=== PATIENT | female | born 1985 | race Caucasian/White ===

== ENCOUNTER 2016-11-07 12:38 | Observation (INO) ==
[2016-11-07] MEDS ORDERED: MORPHINE 2 MG/ML SYRINGE IVP STA (12:48)
[2016-11-07] MEDS ORDERED: SODIUM CHLORIDE 1,000 ML IV STA (12:48)
[2016-11-07] MEDS ORDERED: ZOFRAN 4 MG/2 ML IVP STA (12:48)
[2016-11-07 13:05] LABS: BASOPHILS # (AUTO) 0.1 K/uL (0-0.2); BASOPHILS % (AUTO) 0.3 % (0.0-3.0); EOSINOPHILS % (AUTO) 0.1 % (0.0-7.0); HEMATOCRIT 46.9 % (37.0-47.0); HEMOGLOBIN 15.4 g/dl (12.0-16.0); IMMATURE GRANULOCYTE % (AUTO) 0.5 % (0.0-5.0); LYMPHOCYTES # (AUTO) 1.6 K/uL (0.60-3.4); LYMPHOCYTES % (AUTO) 5.5 (10.0-50.0); MEAN CORPUSCULAR HEMOGLOBIN 28.5 pg (27.0-31.0); MEAN CORPUSCULAR HGB CONC 32.8 (31.8-35.4); MEAN CORPUSCULAR VOLUME 86.9 fl (81.0-99.0); MONOCYTES % (AUTO) 6.7 (0-10); NEUTROPHILS # (AUTO) 25.5 K/ul (2.0-6.9); NEUTROPHILS % (AUTO) 86.9; PLATELET COUNT 327 10^3/uL (140-440)
[2016-11-07 13:12] LABS: WHITE BLOOD COUNT 29.38 K/ul (4.6-10.2)
[2016-11-07 13:13] LABS: BILIRUBIN,URINE 1+ (NEGATIVE); KETONES,URINE Trace (NEGATIVE); LEUKOCYTE ESTERASE ,URINE Negative (NEGATIVE); NITRITE,URINE Negative (NEGATIVE); PH,URINE 5.5 (5-9); PROTEIN,URINE 2+ (NEGATIVE); URINE, BLOOD 2+ (NEGATIVE)
[2016-11-07 13:13] LABS: URINE PREGNANCY INTERNAL QC INTERNAL QC VALID
[2016-11-07 13:14] LABS: ADD URINE MICROSCOPIC YES
[2016-11-07 13:23] LABS: FLU INTERNAL QC INTERNAL QC VALID; RAPID FLU A NEGATIVE (NEGATIVE); RAPID FLU B NEGATIVE (NEGATIVE)
[2016-11-07 13:27] LABS: ALANINE AMINOTRANSFERASE 42 U/L (12-78); ALBUMIN 4.4 g/dL (3.4-5.0); ALBUMIN/GLOBULIN RATIO 1.19; ALKALINE PHOSPHATASE 130 U/L (42-98); AMYLASE 26 U/L (25-115); ANION GAP 19.8; ASPARTATE AMINO TRANSFERASE 15 U/L (15-37); BILIRUBIN,TOTAL 0.67 mg/dL (0.00-1.20); BLOOD UREA NITROGEN 19 mg/dL (7-18); BUN/CREATININE RATIO 20.21; CARBON DIOXIDE 23 mmol/L (21-32); CHLORIDE 102 mmol/L (98-107); CREATININE 0.94 mg/dL (0.60-1.30); GLUCOSE 143 mg/dL (70-110); POTASSIUM 3.8 mmol/L (3.5-5.10); SODIUM 141 mmol/L (136-145); TOTAL PROTEIN 8.1 g/dL (6.4-8.2)
[2016-11-07 13:28] LABS: LIPASE < 4 U/L (8-78)
[2016-11-07 13:29] LABS: BACTERIA,URINE TRACE (NOT PRESENT)
--- NOTE | 2016-11-07 14:13 | CT ---
EXAM: CT of the abdomen pelvis without contrast History: Back pain and vomiting. Comparison: CT abdomen pelvis 08/24/2016 Technique: Multiplanar CT images through the abdomen pelvis were obtained without the administratio n of IV contrast Findings: Lung bases are free of consolidation. No acute osseous abnormalities. Status post cholecystectomy. No focal liver or splenic lesions. No renal stones and no hydronephro sis. No bowel obstruction. The appendix is not seen but there are no secondary signs of appendicit is. No free air. No ascites. Bladder is not well distended. No perirectal inflammation. Uterus is not seen. Pancreas and adrenal glands are unremarkable. Impression: No acute intra-abdominal or pelvic process.
[2016-11-07] MEDS ORDERED: DILAUDID 1 MG/ML SYRINGE IVP STA (14:17)
--- NOTE | 2016-11-07 14:23 | ED.PDOC ---
General ED Provider: Dr. DANIELITO KING-ER Chief Complaint: Nausea/Vomiting Stated Complaint: im been throwing up since lastd nite and diarrhea Time Seen by Physician: 12:45 Mode of Arrival: Walk-In Information Source: Patient Exam Limitations: No limitations Primary Care Provider: [facility] Nursing and Triage Documentation Reviewed and Agree: Yes GI Complaint Exam - Vomiting/Diarrhea Complaint/Exam Onset/Duration: 24hrs Symptoms Are: Still present Episodes of Vomiting over last 24 Hours: 12 Episodes of Diarrhea Over Last 24 Hours: 8 Review of Systems - Review Of Systems Constitutional: Reports: No symptoms Eyes: Reports: No symptoms Ears, Nose, Mouth, Throat: Reports: No symptoms Respiratory: Reports: No symptoms Cardiac: Reports: No symptoms GI: Reports: Diarrhea, Nausea, Vomiting : Reports: No symptoms Musculoskeletal: Reports: No symptoms Skin: Reports: No symptoms Neurological: Reports: No symptoms Endocrine: Reports: No symptoms Hematologic/Lymphatic: Reports: No symptoms All Other Systems: Reviewed and Negative Past Medical History - Past Medical History Previously Healthy: Yes Endocrine: Reports: None Cardiovascular: Reports: None Respiratory: Reports: None Hematological: Reports: None Gastrointestinal: Reports: None Genitourinary: Reports: None Neuro/Psych: Reports: Migraine, Anxiety Musculoskeletal: Reports: Back Pain Cancer: Reports: None Last Menstrual Period: NA - Surgical History General Surgical History: Reports: Hysterectomy, Tubal ligation, Cholecystectomy , Tonsillectomy - Family History Family History: Reports: Unknown - Social History Smoking Status: Current some day smoker, Light tobacco smoker Hx Substance Use: No Alcohol Screening: None Lives: With family Physical Exam - Physical Exam Appearance: Well-appearing Ill-appearing: Mild Pain Distress: Mild Eyes: ARAMIS, EOMI, Conjunctiva clear ENT: Ears normal, Nose normal, Oropharynx normal Neck: Supple Respiratory: Airway patent Cardiovascular: RRR, Pulses normal, No rub, No murmur GI/: Soft Musculoskeletal: Normal strength, ROM intact, No edema, No calf tenderness Skin: Warm, Dry, Normal color Neurological: Sensation intact, Motor intact, Reflexes intact, Cranial nerves intact, Alert, Oriented Psychiatric: Affect appropriate Interpretation - Radiology Interpretation Radiology Interpretation By: Radiologist Radiology Results: Negative Exam Interpreted: CT Scan Physician Notification - Case Discussed Physician Notified: dr davila Time of Notification: 14:26 Critical Care Note - Critical Care Note Total Time (mins): 0 Course - Course Hematology/Chemistry: 11/07/16 12:25 11/07/16 12:55 Orders, Labs, Meds: Lab Review 11/07/16 11/07/16 12:25 12:55 WBC 29.38 H RBC 5.40 Hgb 15.4 Hct 46.9 MCV 86.9 MCH 28.5 MCHC 32.8 RDW Coeff of Yang 12.2 Plt Count 327 Immature Gran % (Auto) 0.5 Neut % (Auto) 86.9 Lymph % (Auto) 5.5 L [place] % (Auto) 6.7 Eos % (Auto) 0.1 Baso % (Auto) 0.3 Immature Gran # (Auto) 0.2 Neut # 25.5 H Lymph # 1.6 [place] # 2.0 Eos # 0.0 Baso # 0.1 Sodium 141 Potassium 3.8 Chloride 102 Carbon Dioxide 23 Anion Gap 19.8 BUN 19 H Creatinine 0.94 Estimated GFR (MDRD) 70.00 BUN/Creatinine Ratio 20.21 Glucose 143 H Calcium 10.0 Total Bilirubin 0.67 AST 15 ALT 42 Alkaline Phosphatase 130 H Total Protein 8.1 Albumin 4.4 Globulin 3.7 Albumin/Globulin Ratio 1.19 Amylase 26 Lipase < 4 L Urine Color Dark Urine Clarity Slightly Urine pH 5.5 Ur Specific [place] 1.020 Urine Protein 2+ Urine Glucose (UA) Negative Urine Ketones Trace Urine Blood 2+ Urine Nitrite Negative Urine Bilirubin 1+ Urine Urobilinogen 0.2 Ur Leukocyte Esterase Negative Urine Microscopic RBC 2-5 Urine Microscopic WBC 2-5 Ur Squamous Epith Cells 2-5 Ur Renal Epithelial Cell 0-2 Amorphous Sediment 1+ Urine Bacteria Trace Urine Mucus 2+ Urine Test Negative Influenza A (Rapid) Negative Influenza B (Rapid) Negative Orders Category Date Time Status IV [ED IV/MEDIPORT/POWERPORT] .ONCE EMERGENCY 11/07/16 12:48 Active AMYLASE Stat LAB 11/07/16 12:55 Completed CBC W/ AUTO DIFF Stat LAB 11/07/16 12:25 Completed COMPREHENSIVE METABOLIC PANEL Stat LAB 11/07/16 12:55 Completed LIPASE Stat LAB 11/07/16 12:55 Completed MOLECULAR GROUP A STREP Stat LAB 11/07/16 12:25 Results RAPID FLU A/B Stat LAB 11/07/16 12:25 Completed STREP SCREEN Stat LAB 11/07/16 12:25 Results URINALYSIS C & S IF INDICATED Stat LAB 11/07/16 12:55 Completed URINE Stat LAB 11/07/16 12:25 Completed 0.9 % Sodium Chloride [Saline Flush] MEDS 11/07/16 12:48 Active 1 syr IVF PRN PRN Hydromorphone HCl [Dilaudid 1 mg/ml Syringe] MEDS 11/07/16 14:17 Discontinued 1 mg IVP ONCE STA Morphine Sulfate [Morphine 2 mg/ml Syringe] MEDS 11/07/16 12:48 Discontinued 2 mg IVP ONCE STA Ondansetron HCl/Pf [Zofran 4 mg/2 ml] MEDS 11/07/16 12:48 Discontinued 4 mg IVP ONCE STA Sodium Chloride 0.9% [Sodium Chloride] 1,000 ml MEDS 11/07/16 12:[address] ABDOMEN/PELVIS WO CONTRAST Stat RADS 11/07/16 12:48 Completed Medications Generic Name Dose Route Start Last Admin Trade Name Freq PRN Reason Stop Dose Admin Sodium Chloride 1 syr 11/07/16 12:48 11/07/16 13:36 Saline Flush IVF 1 syr PRN PRN Administration To flush IV Discontinued Medications Generic Name Dose Route Start Last Admin Trade Name Freq PRN Reason Stop Dose Admin Hydromorphone HCl 1 mg 11/07/16 14:17 Dilaudid 1 Mg/Ml Syringe IVP 11/07/16 14:18 ONCE STA Sodium Chloride 1,000 mls @ 1,000 mls/hr 11/07/16 12:48 11/07/16 13:39 Sodium Chloride IV 11/07/16 13:47 1,000 mls/hr BOLUS STA Administration Morphine Sulfate 2 mg 11/07/16 12:48 11/07/16 13:38 Morphine 2 Mg/Ml Syringe IVP 11/07/16 12:49 2 mg ONCE STA Administration Ondansetron HCl 4 mg 11/07/16 12:48 11/07/16 13:37 Zofran 4 Mg/2 Ml IVP 11/07/16 12:49 4 mg ONCE STA Administration Vital Signs: Temp Pulse Resp BP Pulse Ox 11/07/16 12:42 99.8 F H 113 H 20 109/59 L 97 Departure - Departure Time of Disposition: 14:26 Disposition: ADMITTED INPATIENT Discharge Problem: Dehydration, Enteritis Leukocytosis Qualifiers: Leukocytosis type: unspecified Qualifier Code: (D72.829) Elevated white blood cell count, unspecified Instructions: Enteritis (ED) Condition: Good Pt referred to PMD for follow-up: Yes Allergies/Adverse Reactions: Allergies cephalexin monohydrate [From Keflex] Allergy (Verified 11/07/16 12:40) hives and itching Pt to get medical alert necklace metoclopramide [From Reglan] Adverse Reaction (Intermediate, Verified 11/07/16 12:40) Rash Home Medications: Ambulatory Orders Oxycodone-Acetaminophen 5-325 [Percocet 5-325] 1 tab PO Q6H PRN 11/07/16 Disposition Discussed With: Patient
[2016-11-07] MEDS ORDERED: PHENERGAN 25 MG/ML VIAL 25 MG in SODIUM CHLORIDE 50 ML IV PRN (14:30)
[2016-11-07] MEDS: D5%-NS-KCL 20 MEQ/L IV SOL 1,000 ML IV SCH ×2 (14:46→23:07)
[2016-11-07 16:35] VITALS: BMI 27.9
[2016-11-07] MEDS: DILAUDID 1 MG/ML SYRINGE IVP PRN ×2 (17:58→21:37)
[2016-11-08] MEDS: DILAUDID 1 MG/ML SYRINGE IVP PRN ×4 (01:08→15:37)
[2016-11-08 06:35] LABS: BASOPHILS # (AUTO) 0.1 K/uL (0-0.2); BASOPHILS % (AUTO) 0.8 % (0.0-3.0); EOSINOPHILS # (AUTO) 0.4 K/ul (0.0-0.7); EOSINOPHILS % (AUTO) 4.3 % (0.0-7.0); HEMATOCRIT 36.7 % (37.0-47.0); HEMOGLOBIN 11.6 g/dl (12.0-16.0); IMMATURE GRANULOCYTE % (AUTO) 0.2 % (0.0-5.0); LYMPHOCYTES # (AUTO) 3.2 K/uL (0.60-3.4); MEAN CORPUSCULAR HEMOGLOBIN 28.5 pg (27.0-31.0); MEAN CORPUSCULAR HGB CONC 31.6 (31.8-35.4); MEAN CORPUSCULAR VOLUME 90.2 fl (81.0-99.0); MONOCYTES # (AUTO) 1.6 K/uL (0.4-2.0); MONOCYTES % (AUTO) 17.3 (0-10); NEUTROPHILS # (AUTO) 3.9 K/ul (2.0-6.9); NEUTROPHILS % (AUTO) 42.4; PLATELET COUNT 187 10^3/uL (140-440); RED BLOOD COUNT 4.07 10^6/ul (4.20-5.40); WHITE BLOOD COUNT 9.24 K/ul (4.6-10.2)
[2016-11-08 07:04] LABS: ALBUMIN 3.2 g/dL (3.4-5.0); ALBUMIN/GLOBULIN RATIO 1.23; ANION GAP 9.8; BILIRUBIN,TOTAL 0.36 mg/dL (0.00-1.20); BUN/CREATININE RATIO 12.3; CALCIUM 8.5 mg/dL (8.2-10.2); CREATININE 0.65 mg/dL (0.60-1.30); POTASSIUM 3.8 mmol/L (3.5-5.10); TOTAL PROTEIN 5.8 g/dL (6.4-8.2)
[2016-11-08] MEDS: D5%-NS-KCL 20 MEQ/L IV SOL 1,000 ML IV SCH ×2 (07:55→15:54)
[2016-11-08 14:37] VITALS: BP 106/65; TEMP 98
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
== END 2016-11-08 18:30 | disposition home or self-care (01) ==
LOC: ED 12:38 → INTOOBSV 14:34 → MEDSURG A 14:34
PROVIDERS: ADMIT General Practice; ATTEND General Practice
DX: K52.9 Noninfective gastroenteritis and colitis, unspecified (principal); E86.0 Dehydration; G89.29 Other chronic pain; M54.9 Dorsalgia, unspecified; G43.909 Migraine, unspecified, not intractable, without status migrainosus; F17.210 Nicotine dependence, cigarettes, uncomplicated; D72.829 Elevated white blood cell count, unspecified; V89.2XXS Person injured in unspecified motor-vehicle accident, traffic, sequela; Z79.891 Long term (current) use of opiate analgesic; Z79.899 Other long term (current) drug therapy
CPT/HCPCS: 36415; 80053; 81001; 81025; 82150; 83690; 85025; 86644; 86645; 86663; 86664; 86710; 87651; 87804; 87880; 96361; 96374; 96375; 96376; 99217; 99219; 99284

== ENCOUNTER 2017-01-05 18:33 | Emergency (ER) ==
[2017-01-05 18:44] VITALS: BP 136/83; TEMP 100.3; BMI 28.3
[2017-01-05] MEDS ORDERED: PHENERGAN 25 MG/ML VIAL IM STA (18:44)
[2017-01-05] MEDS ORDERED: DILAUDID 2 MG/ML SYRINGE IM STA (18:44)
[2017-01-05 19:17] LABS: FLU INTERNAL QC INTERNAL QC VALID; RAPID FLU A NEGATIVE (NEGATIVE); RAPID FLU B NEGATIVE (NEGATIVE)
[2017-01-05] MEDS ORDERED: IMITREX SUBCUT STA (19:25)
[2017-01-05] MEDS ORDERED: TORADOL IM STA (19:25)
--- NOTE | 2017-01-05 19:28 | ED.PDOC ---
General ED Provider: Dr. EARNESTINE HILL Chief Complaint: Headache Stated Complaint: Generalized headache. History of migraines and is out of her topamax Time Seen by Physician: 19:26 Mode of Arrival: Walk-In Information Source: Patient Primary Care Provider: VINICIUS DOWNS Nursing and Triage Documentation Reviewed and Agree: Yes Review of Systems - Review Of Systems Constitutional: Reports: No symptoms Eyes: Reports: Photophobia Ears, Nose, Mouth, Throat: Reports: No symptoms Respiratory: Reports: No symptoms Cardiac: Reports: No symptoms GI: Reports: No symptoms : Reports: No symptoms Musculoskeletal: Reports: No symptoms Skin: Reports: No symptoms Neurological: Reports: Anxiety, Headache Endocrine: Reports: No symptoms Hematologic/Lymphatic: Reports: No symptoms All Other Systems: Reviewed and Negative Past Medical History - Past Medical History Previously Healthy: Yes Endocrine: Reports: None Cardiovascular: Reports: None Respiratory: Reports: None Hematological: Reports: None Gastrointestinal: Reports: None Genitourinary: Reports: None Neuro/Psych: Reports: Migraine, Anxiety Musculoskeletal: Reports: Back Pain Cancer: Reports: None Last Menstrual Period: does not apply - Surgical History General Surgical History: Reports: Hysterectomy, Tubal ligation, Cholecystectomy , Tonsillectomy - Family History Family History: Reports: Unknown - Social History Smoking Status: Current every day smoker Hx Substance Use: No Alcohol Screening: None - Immunizations Tetanus Shot up to Date: Yes Physical Exam - Physical Exam Appearance: Ill-appearing Ill-appearing: Mild Pain Distress: Severe Eyes: ARAMIS, EOMI, Conjunctiva clear ENT: Ears normal, Nose normal Neck: Supple Respiratory: Airway patent, Breath sounds clear, Breath sounds equal, Respirations nonlabored Cardiovascular: Pulses normal, No rub, No murmur, Tachycardia GI/: Soft Musculoskeletal: Normal strength Skin: Warm, Dry Neurological: Sensation intact, Motor intact, Reflexes intact, Cranial nerves intact, Alert, Oriented Psychiatric: Anxious Re-Evaluation - Re-Evaluation Time of Re-Evaluation: 19:26 Status: Improved (with less nausea but stillhas bilateral pain . ) Critical Care Note - Critical Care Note Total Time (mins): 0 Course - Course Orders, Labs, Meds: Lab Review 01/05/17 18:56 Influenza A (Rapid) Negative Influenza B (Rapid) Negative Orders Category Date Time Status MOLECULAR GROUP A STREP Stat LAB 01/05/17 18:56 Results RAPID FLU A/B Stat LAB 01/05/17 18:56 Completed RAPID STREP SCREEN [STREP SCREEN] Stat LAB 01/05/17 18:56 Results Hydromorphone HCl/Pf [Dilaudid 2 mg/ml Syringe] MEDS 01/05/17 18:44 Discontinued 2 mg IM ONCE STA Ketorolac Tromethamine [Toradol] MEDS 01/05/17 19:25 Discontinued 60 mg IM ONCE STA Promethazine HCl [Phenergan 25 mg/ml Vial] MEDS 01/05/17 18:44 Discontinued 25 mg IM ONCE STA Sumatriptan Succinate [Imitrex] MEDS 01/05/17 19:25 Discontinued 6 mg SUBCUT ONCE STA Medications Discontinued Medications Generic Name Dose Route Start Last Admin Trade Name Freq PRN Reason Stop Dose Admin Hydromorphone HCl 2 mg 01/05/17 18:44 01/05/17 18:56 Dilaudid 2 Mg/Ml Syringe IM 01/05/17 18:45 2 mg ONCE STA Administration Ketorolac Tromethamine 60 mg 01/05/17 19:25 01/05/17 19:34 Toradol IM 01/05/17 19:26 60 mg ONCE STA Administration Promethazine HCl 25 mg 01/05/17 18:44 01/05/17 18:55 Phenergan 25 Mg/Ml Vial IM 01/05/17 18:45 25 mg ONCE STA Administration Sumatriptan Succinate 6 mg 01/05/17 19:25 01/05/17 19:33 Imitrex SUBCUT 01/05/17 19:26 6 mg ONCE STA Administration Vital Signs: Temp Pulse Resp BP Pulse Ox 01/05/17 18:34 100.3 F H 115 H 20 136/83 97 Departure - Departure Time of Disposition: 20:00 Disposition: HOME SELF-CARE Discharge Problem: Headache Instructions: Migraine Headache (ED) Condition: Fair Pt referred to PMD for follow-up: Yes Additional Instructions: Push fluids Follow up with PCP in 3 days Take mediations as prescribed as needed for headaches. Prescriptions: Sumatriptan Succinate [Imitrex] 50 mg PO BID PRN #14 tablet PRN Reason: headache Allergies/Adverse Reactions: Allergies cephalexin monohydrate [From Keflex] Allergy (Verified 11/07/16 12:40) hives and itching Pt to get medical alert necklace metoclopramide [From Reglan] Adverse Reaction (Intermediate, Verified 11/07/16 12:40) Rash Home Medications: Ambulatory Orders Hydrocodone Bit/Acetaminophen [[place] 7.5-325] 1 each PO Q6HR PRN 01/05/17 Sumatriptan Succinate [Imitrex] 50 mg PO BID PRN #14 tablet 01/05/17 Disposition Discussed With: Patient
== END 2017-01-05 20:20 | disposition home or self-care (01) ==
LOC: ED 18:33
DX: G43.909 Migraine, unspecified, not intractable, without status migrainosus (principal); F17.210 Nicotine dependence, cigarettes, uncomplicated
CPT/HCPCS: 87651; 87804; 87880; 96372; 99283

== ENCOUNTER 2017-02-14 14:26 | Outpatient (CLI) ==
--- NOTE | 2017-02-14 14:52 | DI ---
EXAM: Right knee four views HISTORY: Pain and swelling COMPARISON: None FINDINGS: The bones are normal. The medial, lateral, and patellofemoral compartments are normal in height. Small joint effusion IMPERSSION: 1. No fracture or dislocation. 2. Small joint effusion.
[2017-02-14 15:06] LABS: BASOPHILS # (AUTO) 0.1 K/uL (0-0.2); BASOPHILS % (AUTO) 0.9 % (0.0-3.0); EOSINOPHILS # (AUTO) 0.5 K/ul (0.0-0.7); EOSINOPHILS % (AUTO) 4.2 % (0.0-7.0); HEMATOCRIT 38.7 % (37.0-47.0); IMMATURE GRANULOCYTE % (AUTO) 0.3 % (0.0-5.0); LYMPHOCYTES # (AUTO) 4.2 K/uL (0.60-3.4); LYMPHOCYTES % (AUTO) 32.2 (10.0-50.0); MEAN CORPUSCULAR HEMOGLOBIN 29.4 pg (27.0-31.0); MEAN CORPUSCULAR HGB CONC 33.6 (31.8-35.4); MEAN CORPUSCULAR VOLUME 87.6 fl (81.0-99.0); MONOCYTES % (AUTO) 7.9 (0-10); NEUTROPHILS # (AUTO) 7.1 K/ul (2.0-6.9); NEUTROPHILS % (AUTO) 54.5; PLATELET COUNT 251 10^3/uL (140-440); RED BLOOD COUNT 4.42 10^6/ul (4.20-5.40); WHITE BLOOD COUNT 13.01 K/ul (4.6-10.2)
[2017-02-14 15:58] LABS: ERYTHROCYTE SEDIMENTATION RATE 21 mm/hr (0-20); ESR INTERNAL QC INTERNAL QC VALID
[2017-02-15 06:11] LABS: RHEUMATOID ARTHRITIS FACTOR < 10.0 IU/mL (0.0-13.9)
[2017-02-18 07:44] LABS: ANTI-NUCLEAR ANTIBODY SCREEN Negative (Negative)
== END 2017-02-14 14:27 | disposition home or self-care (01) ==
LOC: LAB 14:26
PROVIDERS: ATTEND Nurse Practitioner Family
DX: M25.561 Pain in right knee (principal)
CPT/HCPCS: 36415; 84550; 85025; 85651; 86038; 86140; 86430

== ENCOUNTER 2017-03-29 09:53 | Outpatient (CLI) ==
--- NOTE | 2017-03-29 11:01 | US ---
EXAM: Right breast ultrasound. History: Right breast palpable abnormality. Technique: Multiple sonographic images through the right breast were obtained. Color duplex Dopple r was used to interrogate vascular flow. Findings: No masses, cysts or fluid collections identified. Impression: No sonographic evidence for malignancy. Recommend first screening mammogram at 36 year s of age BIRADS 2
== END 2017-03-29 09:54 ==
LOC: RAD 09:53
PROVIDERS: ATTEND Advanced Practice Midwife
DX: N63 Unspecified lump in breast (principal)

== ENCOUNTER 2017-05-30 17:44 | Emergency (ER) ==
[2017-05-30 17:51] VITALS: BP 121/79; TEMP 99.7; BMI 25.4
[2017-05-30] MEDS ORDERED: BENADRYL IM STA (17:57)
[2017-05-30] MEDS ORDERED: DILAUDID 2 MG/ML SYRINGE IM STA (17:57)
[2017-05-30] MEDS ORDERED: TORADOL IM STA (17:57)
[2017-05-30] MEDS ORDERED: PHENERGAN 25 MG/ML VIAL IM STA (17:57)
--- NOTE | 2017-05-30 18:00 | ED.PDOC ---
General ED Provider: Dr. DANIELITO KING-ER Chief Complaint: Headache Stated Complaint: mikayla got my usual migraine---mikayla been out of my topamax Time Seen by Physician: 17:50 Mode of Arrival: Walk-In Information Source: Patient Exam Limitations: No limitations Primary Care Provider: VINICIUS DOWNS Nursing and Triage Documentation Reviewed and Agree: Yes Neurological Complaint Exam - Headache Complaint/Exam Onset: Gradual Duration: several hours Symptoms Are: Still present Timing: Constant Worst Headache Ever: No Initial Severity: Mild Current Severity: Moderate Location: Diffuse Character: Reports: Dull, Throbbing, Radiating, Pressure, Typical headache, Migraine Aggravating: Reports: Bright lights Alleviating: Reports: None Associated Signs and Symptoms: Reports: Nausea. Denies: Dizziness, Seizure, Vomiting, Sinus pressure, Fever, Neck pain, Neck stiffness, Decreased LOC, Visual changes Related History: Reports: Similar episode. Denies: Recent trauma, Remote trauma Related Surgical History: Reports: None Meningitis Risk Factors: Reports: None SDH Risk Factors: Reports: None Temporal Arteritis Risk Factors: Reports: Female, Normal Head CT Within Last 12 Months: Yes Fundoscopic Exam: Present: Normal Findings Papilledema Present: No Temporal Artery Tenderness: Present: None Sinus Tenderness: Present: None TMJ Tenderness: Present: None Glascow Coma Scale (see protocol): 15 Meningeal Signs Positive: No Pain on Passive Flexion-Positive Kernig's: No ROM Limited In: No Limitiations Focal Weakness: Present: None Focal Sensory Loss: Present: None Gait: Normal Nystagmus Present: No Gag Reflex Present: Yes [id number]: Normal Findings Romberg Test Positive: No Babinski Sign: Negative Right, Negative Left Heel to Toe Normal: Yes Differential Diagnoses: Migraine Review of Systems - Review Of Systems Constitutional: Reports: No symptoms Eyes: Reports: No symptoms Ears, Nose, Mouth, Throat: Reports: No symptoms Respiratory: Reports: No symptoms Cardiac: Reports: No symptoms GI: Reports: Nausea : Reports: No symptoms Musculoskeletal: Reports: No symptoms Skin: Reports: No symptoms Neurological: Reports: Headache Endocrine: Reports: No symptoms Hematologic/Lymphatic: Reports: No symptoms All Other Systems: Reviewed and Negative Past Medical History - Past Medical History Previously Healthy: Yes Endocrine: Reports: None Cardiovascular: Reports: None Respiratory: Reports: None Hematological: Reports: None Gastrointestinal: Reports: None Genitourinary: Reports: None Neuro/Psych: Reports: Migraine, Anxiety Musculoskeletal: Reports: Back Pain Cancer: Reports: None Last Menstrual Period: 8-9 years - Surgical History General Surgical History: Reports: Hysterectomy, Tubal ligation, Cholecystectomy , Tonsillectomy - Family History Family History: Reports: Unknown - Social History Smoking Status: Current every day smoker, Light tobacco smoker Hx Substance Use: No Alcohol Screening: None Lives: With family Physical Exam - Physical Exam Appearance: Well-appearing, No pain distress, Well-nourished Pain Distress: Moderate Eyes: ARAMIS, EOMI, Conjunctiva clear ENT: Ears normal, Nose normal, Oropharynx normal Neck: Supple Respiratory: Airway patent, Breath sounds clear, Breath sounds equal, Respirations nonlabored Cardiovascular: RRR, Pulses normal, No rub, No murmur GI/: Soft, Nontender, No masses, Bowel sounds normal, No Organomegaly Musculoskeletal: Normal strength, ROM intact, No edema, No calf tenderness Skin: Warm, Dry, Normal color Neurological: Sensation intact, Motor intact, Reflexes intact, Cranial nerves intact, Alert, Oriented Psychiatric: Affect appropriate, Mood appropriate Re-Evaluation - Re-Evaluation Time of Re-Evaluation: 18:30 Status: Improved Vital Signs Stable: Yes Pain Level: 1 Appearance: NAD Lungs: Clear Skin: Warm and Dry Neuro: Alert and Oriented X3 CV: RRR Critical Care Note - Critical Care Note Total Time (mins): 0 Course - Course Orders, Labs, Meds: Orders Category Date Time Status Diphenhydramine Inj [Benadryl] MEDS 05/30/17 17:57 Discontinued 50 mg IM ONCE STA Hydromorphone HCl/Pf [Dilaudid 2 mg/ml Syringe] MEDS 05/30/17 17:57 Discontinued 2 mg IM ONCE STA Ketorolac Tromethamine [Toradol] MEDS 05/30/17 17:57 Discontinued 60 mg IM ONCE STA Promethazine HCl [Phenergan 25 mg/ml Vial] MEDS 05/30/17 17:57 Discontinued 25 mg IM ONCE STA Medications Discontinued Medications Generic Name Dose Route Start Last Admin Trade Name Freq PRN Reason Stop Dose Admin Diphenhydramine HCl 50 mg 05/30/17 17:57 Benadryl IM 05/30/17 17:58 ONCE STA Hydromorphone HCl 2 mg 05/30/17 17:57 Dilaudid 2 Mg/Ml Syringe IM 05/30/17 17:58 ONCE STA Ketorolac Tromethamine 60 mg 05/30/17 17:57 Toradol IM 05/30/17 17:58 ONCE STA Promethazine HCl 25 mg 05/30/17 17:57 Phenergan 25 Mg/Ml Vial IM 05/30/17 17:58 ONCE STA Vital Signs: Temp Pulse Resp BP Pulse Ox 05/30/17 17:45 99.7 F H 95 H 20 121/79 97 Departure - Departure Time of Disposition: 18:01 Disposition: HOME SELF-CARE Discharge Problem: Migraine headache Qualifiers: Migraine type: unspecified Status migrainosus presence: without status migrainosus Intractability: not intractable Qualifier Code: (G43.909) Migraine, unspecified, not intractable, without status migrainosus Instructions: Migraine Headache (ED) Condition: Good Pt referred to PMD for follow-up: Yes Additional Instructions: f/u wtih your neurologist Allergies/Adverse Reactions: Allergies cephalexin monohydrate [From Keflex] Allergy (Verified 05/30/17 17:51) hives and itching Pt to get medical alert necklace metoclopramide [From Reglan] Adverse Reaction (Intermediate, Verified 05/30/17 17:51) Rash Home Medications: Ambulatory Orders Hydrocodone Bit/Acetaminophen [[place] 7.5-325] 1 each PO Q6HR PRN 01/05/17 Disposition Discussed With: Patient, Family
== END 2017-05-30 18:50 | disposition home or self-care (01) ==
LOC: ED 17:44
DX: G43.909 Migraine, unspecified, not intractable, without status migrainosus (principal); F17.210 Nicotine dependence, cigarettes, uncomplicated
CPT/HCPCS: 96372; 99283

== ENCOUNTER 2017-06-11 15:48 | Emergency (ER) ==
[2017-06-11 15:49] VITALS: BMI 25.4
[2017-06-11 15:57] VITALS: BP 129/82; TEMP 99.1
--- NOTE | 2017-06-11 16:19 | ED.PDOC ---
General ED Provider: Dr. SIMONA WALDEN Chief Complaint: Headache Stated Complaint: headache chronic Time Seen by Physician: 16:00 Mode of Arrival: Walk-In Information Source: Patient Exam Limitations: No limitations [facility] T[facility] Documentation Reviewed and Agree: Yes (seen with yordy RN at all times negative trauma history) Neurological Complaint Exam - Headache Complaint/Exam Onset: Gradual Duration: 2 days Symptoms Are: Still present Timing: Intermittent Episodes Lasting: Days Worst Headache Ever: No Initial Severity: Moderate Current Severity: Moderate Location: Frontal, Temporal Character: Reports: Throbbing Aggravating: Reports: None Alleviating: Reports: None Associated Signs and Symptoms: Denies: Dizziness, Seizure, Nausea, Vomiting, Sinus pressure, Fever, Neck pain, Neck stiffness, Decreased LOC, Visual changes Related History: Reports: Similar episode Related Surgical History: Reports: None SAH Risk Factors: Reports: None Meningitis Risk Factors: Reports: None SDH Risk Factors: Reports: None Temporal Arteritis Risk Factors: Reports: Female, Normal Head CT Within Last 12 Months: Yes Fundoscopic Exam: Present: Normal Findings Papilledema Present: No Temporal Artery Tenderness: Present: None Sinus Tenderness: Present: None TMJ Tenderness: Present: None Glascow Coma Scale (see protocol): 15 Meningeal Signs Positive: No Pain on Passive Flexion-Positive Kernig's: No ROM Limited In: No Limitiations Focal Weakness: Present: None Focal Sensory Loss: Present: None Gait: Normal Nystagmus Present: No Gag Reflex Present: Yes Differential Diagnoses: Migraine Review of Systems - Review Of Systems Constitutional: Reports: No symptoms Eyes: Reports: No symptoms Ears, Nose, Mouth, Throat: Reports: No symptoms Respiratory: Reports: No symptoms Cardiac: Reports: No symptoms GI: Reports: No symptoms : Reports: No symptoms Musculoskeletal: Reports: No symptoms Skin: Reports: No symptoms Neurological: Reports: Headache Endocrine: Reports: No symptoms Hematologic/Lymphatic: Reports: No symptoms All Other Systems: Reviewed and Negative Past Medical History - Past Medical History Previously Healthy: Yes Endocrine: Reports: None Cardiovascular: Reports: None Respiratory: Reports: None Hematological: Reports: None Gastrointestinal: Reports: None Genitourinary: Reports: None Neuro/Psych: Reports: Migraine, Anxiety Musculoskeletal: Reports: Back Pain Cancer: Reports: None Last Menstrual Period: hysterectomy - Surgical History General Surgical History: Reports: Hysterectomy, Tubal ligation, Cholecystectomy , Tonsillectomy - Family History Family History: Reports: Unknown - Social History Smoking Status: Current every day smoker, Light tobacco smoker Hx Substance Use: No Alcohol Screening: None Physical Exam - Physical Exam Appearance: Well-appearing, No pain distress, Well-nourished Eyes: ARAMIS, EOMI, Conjunctiva clear ENT: Ears normal, Nose normal, Oropharynx normal Respiratory: Airway patent, Breath sounds clear, Breath sounds equal, Respirations nonlabored Cardiovascular: RRR, Pulses normal, No rub, No murmur GI/: Soft, Nontender, No masses, Bowel sounds normal, No Organomegaly Musculoskeletal: Normal strength, ROM intact, No edema, No calf tenderness Skin: Warm, Dry, Normal color Neurological: Sensation intact, Motor intact, Reflexes intact, Cranial nerves intact, Alert, Oriented Psychiatric: Affect appropriate, Mood appropriate Critical Care Note - Critical Care Note Total Time (mins): 0 Course - Course Vital Signs: Temp Pulse Resp BP Pulse Ox 06/11/17 15:50 99.1 F 85 20 129/82 98 Departure - Departure Time of Disposition: 16:19 Disposition: HOME SELF-CARE Discharge Problem: Headache Instructions: Acute Headache (ED) Condition: Good Pt referred to PMD for follow-up: Yes Allergies/Adverse Reactions: Allergies cephalexin monohydrate [From Keflex] Allergy (Verified 06/11/17 15:57) hives and itching Pt to get medical alert necklace metoclopramide [From Reglan] Adverse Reaction (Intermediate, Verified 06/11/17 15:57) Rash Home Medications: Ambulatory Orders Hydrocodone Bit/Acetaminophen [[place] 7.5-325] 1 each PO Q6HR PRN 01/05/17 Disposition Discussed With: Patient
[2017-06-11] MEDS: TORADOL IM STA (16:44)
== END 2017-06-11 17:05 | disposition home or self-care (01) ==
LOC: ED 15:48
DX: R51 Headache (principal); F17.210 Nicotine dependence, cigarettes, uncomplicated
CPT/HCPCS: 96372; 99283

== ENCOUNTER 2017-06-18 17:09 | Outpatient (CLI) | END 2017-06-18 17:10 | disposition home or self-care (01) | LOC: LAB 17:09 | PROVIDERS: ATTEND Nurse Practitioner Family | DX: J02.9 Acute pharyngitis, unspecified (principal) | CPT/HCPCS: 87651; 87880 ==

== ENCOUNTER 2017-08-02 09:33 | Outpatient (CLI) ==
--- NOTE | 2017-08-02 10:45 | DI ---
EXAM: Three views of the paranasal sinuses HISTORY: Acute sinusitis. COMPARISON: CT head 07/27/2016 paranasal sinus x-rays 09/05/2011 FINDINGS: The paranasal sinuses are clear. There is no air fluid level or opacified sinus. The nasa l septum is approximately midline. The nasal turbinates are normal. IMPRESSION: No radiographic evidence of sinusitis
== END 2017-08-02 09:34 | disposition home or self-care (01) ==
LOC: RAD 09:33
PROVIDERS: ATTEND Nurse Practitioner Family
DX: J01.90 Acute sinusitis, unspecified (principal)

== ENCOUNTER 2017-08-12 21:41 | Emergency (ER) ==
[2017-08-12 21:54] VITALS: BP 157/118; TEMP 100.8; BMI 27.1
--- NOTE | 2017-08-12 21:59 | ED.PDOC ---
General ED Provider: Dr. KM [facility] Chief Complaint: Fall Stated Complaint: Fell back and hurting in tail bone ever since, also c/o pain in the right hip. Time Seen by Physician: 21:57 Mode of Arrival: Wheelchair Information Source: Patient Primary Care Provider: [facility] Nursing and Triage Documentation Reviewed and Agree: Yes Musculoskeletal Complaint Exam - Lower Extremity Complaint/Exam Location of Pain: Reports: Right, Hip Mechanism of Injury: Reports: Trauma Symptoms Are: Still present Onset of Pain: Reports: Immediate Initial Severity: Moderate Current Severity: Severe Location: Reports: Discrete Character: Reports: Aching, Throbbing Alleviating: Reports: None Aggravating: Reports: Movement, Weight bearing, Prolonged standing Able to Bear Weight: No Associated Signs and Symptoms: Denies: Swelling, Redness, Bruising, Fever, Weakness, Numbness, Tingling Related History: Reports: Similar episode DVT Risk Factors: Reports: None Septic Arthritis Risk Factors: Reports: None Related Surgical History: Reports: None NV Bundle Intact Distal to Injury: No Differential Diagnoses: Fracture, Strain Review of Systems - Review Of Systems Constitutional: Reports: No symptoms Eyes: Reports: No symptoms Ears, Nose, Mouth, Throat: Reports: No symptoms Respiratory: Reports: No symptoms Cardiac: Reports: No symptoms GI: Reports: No symptoms : Reports: No symptoms Musculoskeletal: Reports: Back pain, Joint pain Skin: Reports: No symptoms Neurological: Reports: No symptoms Endocrine: Reports: No symptoms Hematologic/Lymphatic: Reports: No symptoms All Other Systems: Reviewed and Negative Past Medical History - Past Medical History Previously Healthy: Yes Endocrine: Reports: None Cardiovascular: Reports: None Respiratory: Reports: None Hematological: Reports: None Gastrointestinal: Reports: None Genitourinary: Reports: None Neuro/Psych: Reports: Migraine, Anxiety Musculoskeletal: Reports: Back Pain Cancer: Reports: None Last Menstrual Period: 2010 - Surgical History General Surgical History: Reports: Hysterectomy, Tubal ligation, Cholecystectomy , Tonsillectomy - Family History Family History: Reports: Unknown - Social History Smoking Status: Current every day smoker, Light tobacco smoker Smoking Cessation Counseling Time: > 10 min Hx Substance Use: No Alcohol Screening: None - Immunizations Tetanus Shot up to Date: Yes Physical Exam - Physical Exam Appearance: Ill-appearing, Obese Pain Distress: Moderate Eyes: ARAMIS, EOMI, Conjunctiva clear ENT: Ears normal, Nose normal, Oropharynx normal Respiratory: Airway patent, Breath sounds clear, Breath sounds equal, Respirations nonlabored Cardiovascular: RRR, Pulses normal, No rub, No murmur GI/: Soft, Nontender, No masses, Bowel sounds normal, No Organomegaly Musculoskeletal: Normal strength, ROM intact, No edema, No calf tenderness Skin: Warm, Dry, Normal color Neurological: Sensation intact, Motor intact, Reflexes intact, Cranial nerves intact, Alert, Oriented Psychiatric: Affect appropriate, Mood appropriate Interpretation - Radiology Interpretation Radiology Interpretation By: Radiologist Radiology Results: Positive Exam Interpreted: CT Scan Critical Care Note - Critical Care Note Total Time (mins): 0 Course - Course Orders, Labs, Meds: Orders Category Date Time Status Hydromorphone HCl [Dilaudid 1 mg/ml Syringe] MEDS 08/12/17 23:08 Stat 1 mg IM ONCE STA Morphine Sulfate [Morphine 2 mg/ml Syringe] MEDS 08/12/17 21:56 Discontinued 2 mg IM ONCE STA Ondansetron HCl/Pf [Zofran 4 mg/2 ml] MEDS 08/12/17 21:56 Discontinued 4 mg IM ONCE STA Ondansetron HCl/Pf [Zofran 4 mg/2 ml] MEDS 08/12/17 23:08 Stat 4 mg IM ONCE STA CT PELVIS W/O CONTRAST Stat RADS 08/12/17 21:56 Completed FEMUR, RIGHT 2 VIEWS Stat RADS 08/12/17 21:56 Completed Medications Generic Name Dose Route Start Last Admin Trade Name Freq PRN Reason Stop Dose Admin Hydromorphone HCl 1 mg 08/12/17 23:08 Dilaudid 1 Mg/Ml Syringe IM 08/12/17 23:09 ONCE STA Ondansetron HCl 4 mg 08/12/17 23:08 Zofran 4 Mg/2 Ml IM 08/12/17 23:09 ONCE STA Discontinued Medications Generic Name Dose Route Start Last Admin Trade Name Freq PRN Reason Stop Dose Admin Morphine Sulfate 2 mg 08/12/17 21:56 08/12/17 22:06 Morphine 2 Mg/Ml Syringe IM 08/12/17 21:57 2 mg ONCE STA Administration Ondansetron HCl 4 mg 08/12/17 21:56 08/12/17 22:04 Zofran 4 Mg/2 Ml IM 08/12/17 21:57 4 mg ONCE STA Administration Vital Signs: Temp Pulse Resp BP Pulse Ox 08/12/17 21:47 100.8 F H 135 H 24 157/118 H 97 Departure - Departure Time of Disposition: 23:09 Disposition: HOME SELF-CARE Discharge Problem: Falls Inferior pubic ramus fracture Qualifiers: Encounter type: initial encounter Fracture type: closed Laterality: right Qualified Code(s): S32.591A - Other specified fracture of right pubis, initial encounter for closed fracture Instructions: Pelvic Fracture (ED) Condition: Good Pt referred to PMD for follow-up: Yes Additional Instructions: Dr herrera will see her in office at 12 pm 08-13-17 non weight bearing on right leg, rest Allergies/Adverse Reactions: Allergies cephalexin monohydrate [From Keflex] Allergy (Verified 08/12/17 21:49) hives and itching Pt to get medical alert necklace metoclopramide [From Reglan] Adverse Reaction (Intermediate, Verified 08/12/17 21:49) Rash Home Medications: Ambulatory Orders Hydrocodone Bit/Acetaminophen [[place] 7.5-325] 1 each PO Q6HR PRN 01/05/17 Comb No.42/Folic Acid [Prena1 Chew Tablet] 1.4 mg PO DAILY 06/18/17 Disposition Discussed With: Patient, Family
[2017-08-12] MEDS: ZOFRAN 4 MG/2 ML IM STA ×2 (22:04→23:29)
[2017-08-12] MEDS: MORPHINE 2 MG/ML SYRINGE IM STA (22:06)
--- NOTE | 2017-08-12 22:47 | CT ---
EXAM: CT pelvis without intravenous contrast 08/12/2017. Sagittal and coronal reformatted images ob tained HISTORY: Fall. Injury pain COMPARISON: 11/07/2016 FINDINGS: No acute inflammatory or post traumatic process identified within the soft tissues of the pelvis. No free air or free fluid. Subtle cortical irregularities are present within the central aspect of the right inferior pubic [place] s. Minimal angulation. No displacement. This can be seen on axial series image 75. This is most c ompatible with acute nondisplaced fracture site. IMPRESSION: 1. Acute nondisplaced fracture of the right inferior pubic ramus. 2. The remaining visualized osseous structures appear intact. 3. No acute soft tissue abnormality.
--- NOTE | 2017-08-12 22:49 | DI ---
EXAM: AP and lateral views of the right femur. HISTORY: Injury and pain. FINDINGS: The right femur is intact with no evidence of fracture. The joint spaces are maintained. No soft tissue abnormality. Impression: There is a nondisplaced fracture through the right inferior pubic ramus. The right femur is intact. The joint spaces are maintained. No soft tissue abnormality. Impression: Nondisplaced fracture of the right inferior pubic ramus. Negative right femur.
[2017-08-12] MEDS: DILAUDID 1 MG/ML SYRINGE IM STA (23:28)
== END 2017-08-13 00:38 | disposition home or self-care (01) ==
LOC: ED 21:41
DX: S32.591A Other specified fracture of right pubis, initial encounter for closed fracture (principal); W19.XXXA Unspecified fall, initial encounter; F17.210 Nicotine dependence, cigarettes, uncomplicated
CPT/HCPCS: 96372; 99284

== ENCOUNTER 2017-10-24 10:55 | Outpatient (CLI) ==
[2017-10-24 11:18] LABS: BASOPHILS # (AUTO) 0.1 K/uL (0-0.2); BASOPHILS % (AUTO) 0.7 % (0.0-3.0); EOSINOPHILS # (AUTO) 0.3 K/ul (0.0-0.7); EOSINOPHILS % (AUTO) 2.6 % (0.0-7.0); HEMOGLOBIN 12.9 g/dl (12.0-16.0); IMMATURE GRANULOCYTE % (AUTO) 0.2 % (0.0-5.0); MEAN CORPUSCULAR HEMOGLOBIN 29.1 pg (27.0-31.0); MEAN CORPUSCULAR HGB CONC 33.1 (31.8-35.4); MONOCYTES # (AUTO) 0.8 K/uL (0.4-2.0); MONOCYTES % (AUTO) 6.6 (0-10); NEUTROPHILS # (AUTO) 6.9 K/ul (2.0-6.9); NEUTROPHILS % (AUTO) 56.9; PLATELET COUNT 258 10^3/uL (140-440); RED BLOOD COUNT 4.43 10^6/ul (4.20-5.40); WHITE BLOOD COUNT 12.15 K/ul (4.6-10.2)
[2017-10-24 12:00] LABS: ALBUMIN 3.7 g/dL (3.4-5.0); ALBUMIN/GLOBULIN RATIO 1.03; ANION GAP 13.9; BILIRUBIN,TOTAL 0.3 mg/dL (0.00-1.20); BUN/CREATININE RATIO 9.37; CALCIUM 9.4 mg/dL (8.2-10.2); CHOL/HDL RATIO 5.9 (4.5-5.5); CREATININE 0.64 mg/dL (0.60-1.30); POTASSIUM 3.9 mmol/L (3.5-5.10); TOTAL PROTEIN 7.3 g/dL (6.4-8.2)
== END 2017-10-24 10:56 | disposition home or self-care (01) ==
LOC: CAR 10:55
PROVIDERS: ATTEND Nurse Practitioner Family
DX: E66.3 Overweight (principal)
CPT/HCPCS: 36415; 80053; 80061; 84443; 85025; 93005; 93010

== ENCOUNTER 2017-11-28 07:32 | Outpatient (CLI) | END 2017-11-28 07:33 | disposition home or self-care (01) | LOC: LAB 07:32 | PROVIDERS: ATTEND Nurse Practitioner Family | DX: E78.1 Pure hyperglyceridemia (principal) | CPT/HCPCS: 36415; 80061 ==

== ENCOUNTER 2017-11-30 14:07 | Emergency (ER) ==
[2017-11-30 14:17] VITALS: BP 141/93; TEMP 99.3; BMI 27.6
[2017-11-30] MEDS ORDERED: TORADOL IM STA (14:57)
[2017-11-30] MEDS ORDERED: NORFLEX PO STA (15:02)
--- NOTE | 2017-11-30 15:14 | ED.PDOC ---
General ED Provider: Dr. DANIELITO PHELAN Chief Complaint: Respiratory Complaint Mode of Arrival: Walk-In Information Source: Patient [facility] T[facility] Documentation Reviewed and Agree: Yes Reviewed sepsis parameters & appropriate labs ordered?: Yes System Inflammatory Response Syndrome: Not Applicable Sepsis Protocol: For patient's 13 years and over: Temp is 96.8 and below OR 101 and greater Pulse >90 BPM Resp >20/minute Acutely Altered Mental Status Are patient's symptoms suggestive of a new infection, such as: -Pneumonia -Skin, Soft Tissue -Endocarditis -UTI -Bone, Joint Infection -Implantable Device -Acute Abdominal Infection -Wound Infection -Meningitis -Blood Stream Catheter Infection -Unknown System Inflammatory Response Syndrome: Not Applicable Past Medical History - Past Medical History Previously Healthy: Yes Endocrine: Reports: None Cardiovascular: Reports: None Respiratory: Reports: None Hematological: Reports: None Gastrointestinal: Reports: None Genitourinary: Reports: None Neuro/Psych: Reports: Migraine, Anxiety Musculoskeletal: Reports: Back Pain Cancer: Reports: None Last Menstrual Period: hysterectomy - Surgical History General Surgical History: Reports: Hysterectomy, Tubal ligation, Cholecystectomy , Tonsillectomy - Family History Family History: Reports: Unknown - Social History Smoking Status: Current every day smoker, Light tobacco smoker Hx Substance Use: No Alcohol Screening: None Course - Course Hematology/Chemistry: 11/30/17 15:15 11/30/17 15:15 Orders, Labs, Meds: Lab Review 11/30/17 11/30/17 11/30/17 15:15 15:15 15:15 WBC 16.32 H RBC 4.38 Hgb 12.8 Hct 37.4 MCV 85.4 MCH 29.2 MCHC 34.2 RDW Coeff of Yang 11.5 L Plt Count 228 Immature Gran % (Auto) 0.4 Neut % (Auto) 61.5 Lymph % (Auto) 26.7 [place] % (Auto) 8.1 Eos % (Auto) 2.6 Baso % (Auto) 0.7 Immature Gran # (Auto) 0.1 Neut # 10.0 H Lymph # 4.4 H [place] # 1.3 Eos # 0.4 Baso # 0.1 Sodium 142 Potassium 3.6 Chloride 105 Carbon Dioxide 28 Anion Gap 12.6 BUN 8 Creatinine 0.70 Estimated GFR (MDRD) 98.00 BUN/Creatinine Ratio 11.42 Glucose 103 Calcium 9.2 Total Bilirubin 0.3 AST 20 ALT 21 Alkaline Phosphatase 108 H Total Protein 7.1 Albumin 3.7 Globulin 3.4 Albumin/Globulin Ratio 1.09 Influenza A (Rapid) Negative by naat Influenza B (Rapid) Negative by naat Orders Category Date Time Status CBC W/ AUTO DIFF Stat LAB 11/30/17 15:15 Completed CMP [COMPREHENSIVE METABOLIC PANEL] Stat LAB 11/30/17 15:15 Completed FLU A/B MOLECULAR Stat LAB 11/30/17 15:15 Completed MOLECULAR GROUP A STREP Stat LAB 11/30/17 15:15 Completed Ketorolac Tromethamine [Toradol] MEDS 11/30/17 14:57 Discontinued 30 mg IM ONCE STA Orphenadrine Citrate [Norflex] MEDS 11/30/17 15:02 Discontinued 100 mg PO ONCE STA CHEST, 2 VIEWS PA & LAT Stat RADS 11/30/17 15:10 Completed Medications Discontinued Medications Generic Name Dose Route Start Last Admin Trade Name Freq PRN Reason Stop Dose Admin Ketorolac Tromethamine 30 mg 11/30/17 14:57 11/30/17 15:29 Toradol IM 11/30/17 14:58 30 mg ONCE STA Administration Orphenadrine Citrate 100 mg 11/30/17 15:02 11/30/17 15:26 Norflex PO 11/30/17 15:03 100 mg ONCE STA Administration Vital Signs: Temp Pulse Resp BP Pulse Ox 11/30/17 14:08 99.3 F 115 H 22 141/93 H 97 Departure - Departure Time of Disposition: 18:40 Disposition: HOME SELF-CARE Discharge Problem: URI (upper respiratory infection), Right-sided chest wall pain, Leukocytosis Instructions: Upper Respiratory Infection (ED), Leukocytosis (ED), Chest Wall Pain (ED) Condition: Good Pt referred to PMD for follow-up: Yes IPMP verified?: No Prescriptions: Diclofenac Sodium 50 mg PO BID #30 tablet.dr Allergies/Adverse Reactions: Allergies cephalexin monohydrate [From Keflex] Allergy (Verified 11/30/17 14:17) hives and itching Pt to get medical alert necklace metoclopramide [From Reglan] Adverse Reaction (Intermediate, Verified 11/30/17 14:17) Rash morphine Adverse Reaction (Verified 11/30/17 14:18) Home Medications: Ambulatory Orders Hydrocodone Bit/Acetaminophen [[place] 7.5-325] 1 each PO Q6HR PRN 01/05/17 Diclofenac Sodium 50 mg PO BID #30 tablet. 11/30/17
--- NOTE | 2017-11-30 15:48 | DI ---
EXAM: Two-view chest HISTORY: Shortness of breath. TECHNIQUE: Frontal and lateral views of the chest were obtained. Comparison 06/03/2016. FINDINGS: The heart is normal size. Lungs are clear. The pulmonary vasculature appears normal. Th e costophrenic angles are sharp. IMPRESSION: No active cardiopulmonary disease.
== END 2017-11-30 17:10 | disposition home or self-care (01) ==
LOC: ED 14:07
DX: J06.9 Acute upper respiratory infection, unspecified (principal); R07.89 Other chest pain; D72.829 Elevated white blood cell count, unspecified; F17.210 Nicotine dependence, cigarettes, uncomplicated
CPT/HCPCS: 36415; 80053; 85025; 87502; 87651; 96372; 99283

== ENCOUNTER 2017-12-17 16:16 | Outpatient (CLI) | END 2017-12-17 16:17 | disposition home or self-care (01) | LOC: LAB 16:16 | PROVIDERS: ATTEND Nurse Practitioner Family | DX: R05 Cough (principal); J02.9 Acute pharyngitis, unspecified | CPT/HCPCS: 87651; 87804 ==

== ENCOUNTER 2018-11-19 21:44 | Emergency (ER) ==
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
[2018-11-19 21:58] VITALS: BP 149/105; TEMP 98.2; BMI 27.1
[2018-11-19] MEDS ORDERED: TORADOL IM STA (22:12)
[2018-11-19] MEDS ORDERED: TORADOL ONE (22:13)
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
[2018-11-19] MEDS ORDERED: NUBAIN IM STA (22:35)
[2018-11-19] MEDS: NUBAIN ONE ×2 (22:40→22:45)
== END 2018-11-19 23:15 | disposition home or self-care (01) ==
LOC: ED 21:44
DX: S13.9XXA Sprain of joints and ligaments of unspecified parts of neck, initial encounter (principal); R51 Headache; M54.6 Pain in thoracic spine; V89.2XXA Person injured in unspecified motor-vehicle accident, traffic, initial encounter; M54.5 Low back pain; G89.29 Other chronic pain; F17.210 Nicotine dependence, cigarettes, uncomplicated
CPT/HCPCS: 96372; 99283

== ENCOUNTER 2019-02-10 09:06 | Outpatient (CLI) ==
--- NOTE | 2019-02-10 10:30 | MRI ---
EXAM: MRI of the lumbar spine without contrast CLINICAL HISTORY: pain muscle spasms TECHNIQUE: Multiplanar imaging of the lumbar spine was performed using T1, T2, inversion recovery se quences. Comparison 09/06/2010 CT scan of the lumbar spine. FINDINGS: There is straightening of the lumbar spine. There is no bone marrow edema. The paraspina l soft tissues are normal. The lumbar spinal cord demonstrates normal signal on T2W images. The con us medullaris is located at the L1-L2 disc space. Five lumbar-type vertebral bodies are identified. There is degenerative disc disease and mild desiccation of the disc seen at L4-L5. Segmental analysis: T12-L1: The central canal and neural foramina appear patent. L1-L2: The canal canal and neural foramina appear patent. L2-L3: The central canal and neural foramina appear patent. L3-L4: The central canal appears patent. There is mild stenosis of the neural foramina secondary to facet joint arthropathy. L4-L5: There is mild to moderate facet arthropathy and mild disc bulge. The central canal and later al recesses appear patent. There is moderate bilateral foraminal stenosis at this level. L5-S1: The central canal and lateral recesses appear patent. There is mild narrowing of the neural foramina secondary to mild facet joint arthropathy. IMPRESSION: There is disc bulge and facet joint arthropathy seen at L4-L5 resulting in moderate bila teral foraminal stenosis. Additional mild bilateral foraminal stenosis also seen at L3-L4. There is no central canal stenosis. There is no spondylolisthesis.
== END 2019-02-10 09:07 | disposition home or self-care (01) ==
LOC: RAD 09:06
PROVIDERS: ATTEND Pain Medicine Interventional Pain Medicine
DX: M25.552 Pain in left hip (principal); M47.816 Spondylosis without myelopathy or radiculopathy, lumbar region; M51.37 Other intervertebral disc degeneration, lumbosacral region; M51.17 Intervertebral disc disorders with radiculopathy, lumbosacral region

== ENCOUNTER 2019-02-17 11:58 | Outpatient (CLI) ==
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
== END 2019-02-17 11:59 | disposition home or self-care (01) ==
LOC: RAD 11:58
PROVIDERS: ATTEND Pain Medicine Interventional Pain Medicine
DX: M25.552 Pain in left hip (principal); M47.816 Spondylosis without myelopathy or radiculopathy, lumbar region; M51.37 Other intervertebral disc degeneration, lumbosacral region; M51.17 Intervertebral disc disorders with radiculopathy, lumbosacral region